=== PATIENT | female | born 1980 | race Caucasian/White ===

== ENCOUNTER 2016-08-25 15:05 | Emergency (ER) | payer BC ==
[2016-08-25 15:10] VITALS: TEMP 98.4; BMI 43.3
--- NOTE | 2016-08-25 16:22 | PDOC ---
History of Present Illness <Mark Bojorquez - Last Filed: 08/25/16 20:41> - General History Source: Patient, Family () Exam Limitations: No Limitations - History of Present Illness Initial Comments: 08/25/16 16:50 The patient is a 36 year old female presenting with her , with a significant past medical history of constipation, who presents to the emergency department with abdominal pain since this morning. She describes her pain as localized throughout her abdomen, ranging from mild to moderate. She notes that the pain waxes and wanes in severity. She denies any radiation or modifying factors. She also reports nausea associated with her chief complaint. She states that she is currently injecting her self with Follicle stimulating hormones for the past month as she is attempting to get . She notes that her last sexual intercourse was 3 days ago and her last bowel movement was this morning. The patient denies chest pain, shortness of breath, headache and dizziness. Denies fever, chills, vomit, diarrhea and constipation. Denies dysuria, frequency, urgency and hematuria. LMP: 07/28/2016 Allergies: Past surgical history: Social history: Cigarette use (5-10 daily). Social alcohol use. He denies any drug use. PMD - Dr. Thomas ([phone]) <Bernard Millard - Last Filed: 08/25/16 21:52> - General Chief Complaint: Pain Stated Complaint: ABD PAIN, NAUSEA Time Seen by Provider: 08/25/16 16:20 Past History - Reproductive History (#): 1 Para: 0 Cervical CA: No Dysfunctional Uterine Bleeding: No Ectopic : No Endometrial CA: No Polycystic Ovaries: No Tubal Ligation: No - Psycho/Social/Smoking Cessation Hx Anxiety: No Suicidal Ideation: No Smoking History: Current some day smoker Have you smoked in the past 12 months: Yes Number of Cigarettes Smoked Daily: 2 If you are a former smoker, when did you quit?: 10/12 Information on smoking cessation initiated: No Hx Alcohol Use: Yes (SOCIAL) Drug/Substance Use Hx: No Substance Use Type: None Hx Substance Use Treatment: No <Mark Bojorquez - Last Filed: 08/25/16 20:41> <Bernard Millard - Last Filed: 08/25/16 21:52> - Past Medical History Allergies/Adverse Reactions: Allergies Allergy/AdvReac Type Severity Reaction Status Date / Time No Known Allergies Allergy Verified 08/25/16 15:09 Home Medications: Ambulatory Orders Pnv95/Iron Fum/Folic Acid [ Caplet] 1 each PO DAILY 12/02/15 Metronidazole [Flagyl -] 500 mg PO Q12H #14 tablet 12/04/15 Review of Systems - Review of Systems Able to Perform ROS?: Yes Comments:: 08/25/16 16:51 CONSTITUTIONAL: No fever, no chills, no fatigue EYES: No visual changes ENT: No ear pain, no sore throat CARDIOVASCULAR: No chest pain, no palpitations RESPIRATORY: No cough, no SOB GI: +Abdominal pain and nausea. No vomiting, no constipation, no diarrhea GENITOURINARY: No dysuria, no frequency, no hematuria MUSKULOSKELETAL: No backpain, no joint pain, no myalgias SKIN: No rash NEURO: No headache <Bernard Millard - Last Filed: 08/25/16 21:52> *Physical Exam - Vital Signs Last Vital Signs Temp Pulse Resp BP Pulse Ox 98.4 F 97 H 20 103/67 99 08/25/16 15:07 08/25/16 15:07 08/25/16 15:07 08/25/16 15:07 08/25/16 15:07 <Mark Bojorquez - Last Filed: 08/25/16 20:41> - Vital Signs Last Vital Signs Temp Pulse Resp BP Pulse Ox 98.4 F 97 H 20 103/67 99 08/25/16 15:07 08/25/16 15:07 08/25/16 15:07 08/25/16 15:07 08/25/16 15:07 - Physical Exam Comments: 08/25/16 16:51 CONSTITUTIONAL: +Obese in no apparent distress HEAD: Normocephalic; atraumatic EYES: PERRL; EOM intact ENMT: External appears normal; normal oropharynx NECK: Supple; non-tender; no cervical lymphadenopathy CARD: Normal S1, S2; no murmurs, rubs, or gallops RESP: Normal chest excursion with respiration; breath sounds clear and equal bilaterally; no wheezes, rhonchi, or rales ABD: +Moderate to severe right lower quadrant tenderness, left lower quadrant tenderness and suprapubic tenderness to palpation, with voluntary guarding. Soft , non-distended; no palpable organomegaly, no palpable hernias EXT: Normal ROM in all four extremities; non-tender to palpation; distal pulses intact SKIN: Warm, dry, no rash NEURO: No focal neurological deficiencies. <FlorajamisonBernard - Last Filed: 08/25/16 21:52> ED Treatment Course - LABORATORY CBC & Chemistry Diagram: 08/25/16 17:05 08/25/16 17:05 <Mark Bojorquez - Last Filed: 08/25/16 20:41> - LABORATORY CBC & Chemistry Diagram: 08/25/16 17:05 08/25/16 17:05 - RADIOLOGY Radiograph Interpretation: 08/25/16 19:26 Transvaginal ultrasound and bladder ultrasound Reviewed by: Dr. Shiela Galvez Impression: Cyst/dominant follicle in the right ovary measuring 2.4 x 2.1 cm 2 cysts/follicles in the left ovary measuring 2.1 and 1.4 cm in maximum dimension, respectively. <Bernard Millard - Last Filed: 08/25/16 21:52> Medical Decision Making - Medical Decision Making 08/25/16 19:56 36-year-old female, currently undergoing fertility treatments with FSH analog and Ovidrelle presents with atraumatic lower abdominal pain and associated nausea. In the ER, patient is awake and alert, afebrile, nontoxic appearing, with normal stable vital signs, with mild to moderate lower abdominal tenderness to palpation with voluntary guarding. Transvaginal pelvic ultrasound showed bilateral ovarian cysts as well as dominant follicles, with good flow and no evidence of free fluid in the cul-de-sac. CBC reveals mild leukocytosis with normal differential. CMP reveals minimally elevated transaminases of unknown etiology. I do not suspect ovarian hyperstimulation syndrome at this time. Will discuss with the patient's fertility specialist. Likely discharge. 08/25/16 20:40 Discussed the case with Dr. Conde. Patient has been off FSH analog for the past 17 days. It is safe to administer Ovidrelle. Patient tolerates by mouth on repeat abdominal exam reveals minimal lower pelvic tenderness bilaterally likely consistent with bilateral dominant follicles. Will discharge with follow- up in 12 hours with [employer] REPRESENTATIVE. <Mark Bojorquez - Last Filed: 08/25/16 20:41> - Medical Decision Making 08/25/16 21:51 Dr. Saida Cross was called regarding the patient at 7:54pm Dr. Cross was consulted regarding the patient at 8:08pm [phone] <Bernard Millard - Last Filed: 08/25/16 21:52> *DC/Admit/Observation/Transfer - Attestations Physician Attestion: 08/25/16 19:55 The documentation was prepared by the scribe under my direct supervision. I have reviewed the documentation which correctly represents the findings, medical decision-making and critical action taken by me. <Mark Bojorquez - Last Filed: 08/25/16 20:41> - Attestations Scribe Attestion: 08/25/16 16:53 Documentation prepared by Bernard Millard, acting as registered medical transcriptionist for Mark Bojorquez MD <Bernard Millard - Last Filed: 08/25/16 21:52> Diagnosis at time of Disposition: Abdominal pain Qualifiers: Abdominal location: lower abdomen, unspecified Qualified Code(s): R10.30 - Lower abdominal pain, unspecified - Discharge Dispostion Disposition: HOME Condition at time of disposition: Stable - Referrals Referrals: Marcus Brooks MD [Staff Physician] - - Patient Instructions Printed Discharge Instructions: DI for Abdominal Pain-Adult
[2016-08-25] MEDS ORDERED: ONDANSETRON 4 MG/2 ML VIAL IVPB ONE (16:46)
[2016-08-25] MEDS ORDERED: SODIUM CHLORIDE 1,000 ML IV STA (16:46)
[2016-08-25] MEDS ORDERED: morphine CARPU-JECT 4 MG/1 ML DISP.SYRIN IVPUSH ONE (16:46)
[2016-08-25] MEDS ORDERED: morphine CARPU-JECT 4 MG/1 ML DISP.SYRIN ONE (17:07)
[2016-08-25] MEDS ORDERED: ONDANSETRON 4 MG/2 ML VIAL ONE (17:07)
[2016-08-25 19:52] LABS: BASOPHIL 0.8 % (0-2.0); EOSINOPHIL 1.8 % (0-4.5); MCH 30.4 pg (25.7-33.7); MCHC 34.2 g/dl (32.0-36.0); MEAN CELL VOLUME 88.8 fl (80-96); MEAN PLT VOLUME 7.1 fl (7.5-11.1); NEUTROPHILS 65.6 % (42.8-82.8); PLATELET COUNT 346 K/MM3 (134-434); RDW 13.4 % (11.6-15.6); WHITE BLOOD COUNT 14.9 K/mm3 (4.0-10.0)
[2016-08-25 19:53] LABS: URINE APPEARANCE CLEAR; URINE BILIRUBIN NEGATIVE (NEGATIVE); URINE COLOR LTYELLOW; URINE GLUCOSE (UA) NEGATIVE (NEGATIVE); URINE KETONE NEGATIVE (NEGATIVE); URINE LEUK ESTERASE NEGATIVE (NEGATIVE); URINE NITRITE NEGATIVE (NEGATIVE); URINE PROTEIN NEGATIVE (NEGATIVE); URINE UROBILINOGEN NEGATIVE E.U./dl (0.2-1.0)
[2016-08-25 19:56] LABS: URINE BLOOD 1+ (NEGATIVE)
[2016-08-25 20:00] LABS: URINE BACTERIA RARE /hpf (NONE SEEN); URINE MUCUS RARE; URINE RBC <1 /hpf (0-3); URINE WBC <1 /hpf (3-5)
[2016-08-25 20:13] LABS: ALBUMIN 3.6 g/dl (3.4-5.0); ANION GAP 10 (8-16); CO2 27 mmol/L (21-32); CREATININE 0.7 mg/dL (0.55-1.02); GLUCOSE,RANDOM 78 mg/dL (74-106); SGOT/AST 44 U/L (15-37); SGPT/ALT 90 U/L (12-78)
[2016-08-25 20:15] LABS: ALK PHOS 94 U/L (45-117); BILIRUBIN,TOTAL 0.4 mg/dL (0.2-1.0); TOT PROT 6.9 g/dl (6.4-8.2)
[2016-08-25 20:52] VITALS: BP 112/71; PULSE 79
--- NOTE | 2016-08-28 15:04 | PDOC ---
Patient Follow-up (Call Back) - Post ED Follow - Up Condition at time of discharge: Stable Disposition at time of original discharge: HOME Reason for Call Back: Abnwl. Microbiology - Disposition Rx Needed: Yes Additional Instructions/Notes: Left message for the patient to call back
== END 2016-08-25 20:50 | disposition home or self-care (01) ==
LOC: JER 15:05
PROC: 3E033NZ Introduction of Analgesics, Hypnotics, Sedatives into Peripheral Vein, Percutaneous Approach (ICD-10-PCS; principal; 2016-08-25)
PROC: 3E033GC Introduction of Other Therapeutic Substance into Peripheral Vein, Percutaneous Approach (ICD-10-PCS; 2016-08-25)
DX: R10.30 Lower abdominal pain, unspecified (principal)
CPT/HCPCS: 36415; 76830-TC; 76856-TC; 80053; 81003; 81015; 83690; 84703; 85025; 87086; 87186; 99284-25